=== PATIENT | female | born 1950 | race Caucasian/White ===

== ENCOUNTER 2018-07-20 05:52 | Day surgery (SDC) | payer MEDICARE, OTHER ==
[2018-07-20] MEDS ORDERED: Ketamine HCl 50 MG/ML IJ ONE (05:53)
[2018-07-20] MEDS ORDERED: DIPRIVAN 200 MG/20 ML IV ONE (05:53)
[2018-07-20] MEDS ORDERED: Lactated Ringers 1,000 ML IV SCH (06:30)
--- NOTE | 2018-07-20 08:53 | OP ---
SURGERY DATE/TIME: 07/20/2018 0800 PREOPERATIVE DIAGNOSIS: Screening exam. POSTOPERATIVE DIAGNOSIS: Moderate to severe sigmoid diverticulosis otherwise normal colon. PROCEDURE: Colonoscopy. SURGEON: Dr. Payan. ANESTHESIA: MAC. Medications given by anesthesia department. HISTORY: The patient is a 68 year-old white female presenting now for her first screening colonoscopy. The patient was appraised of the risks of the procedure including the risk of perforation, phlebitis, untoward reaction to medication, bleeding and missed lesions. The patient verbalized her understanding and desired to have the procedure performed. DESCRIPTION OF PROCEDURE: The patient was given the medications by the anesthesia department. She had continuous pulse oximetry, ECG monitoring, intermittent blood pressure monitoring and tidal CO2 monitoring during the examination. She was placed in the left lateral decubitus position. A digital rectal examination was performed and revealed normal anal sphincter tone and no masses. The flexible Olympus pediatric colonoscope was used to intubate the rectum. A view of the colon was developed sequentially to the cecum. Upon insertion and withdrawal, including a retroflex view in the rectum was noted moderate to severe sigmoid diverticulosis but no other mucosal lesions encountered. The scope was removed from the patient who tolerated the procedure well and was sent back to OP recovery in good condition. The prep was noted to be fair.
[2018-07-20 09:12] LABS: ANION GAP 11.7 MEQ/L (5-15); Calcium 9.4 mg/dL (8.4-10.2); Creatinine 1 0.99 mg/dL (0.52-1.04); Potassium 3.9 mmol/L (3.5-5.1); Risk Ratio 1.9
[2018-07-20 09:30] VITALS: BP 103/79; PULSE 69; O2SAT 98
== END 2018-07-20 09:35 | disposition home or self-care (01) ==
LOC: SDC 05:52
PROVIDERS: ATTEND Family Medicine
DX: Z12.11 Encounter for screening for malignant neoplasm of colon (principal); K57.30 Diverticulosis of large intestine without perforation or abscess without bleeding; J44.9 Chronic obstructive pulmonary disease, unspecified; Z79.899 Other long term (current) drug therapy
CPT/HCPCS: 36415; 80048; 80061; 83721; 94250; G0121; J2704

== ENCOUNTER 2021-12-31 09:52 | Observation (INO) | payer MEDICARE ==
[2021-12-31] MEDS ORDERED: DUONEB 0.5-3 MG/3 ml Neb IH ONE ×2 (10:08→10:15)
[2021-12-31 10:14] LABS: Absolute Neutrophil Ct (ANC) 11.98 (1.4-6.9); Basophil (Absolute #) 0.01 (0-0.4); Eosinophil % 0.4 % (0.00-5.0); Eosinophil (Absolute #) 0.06 (0-0.5); Hematocrit 46.2 % (35-47); Hemoglobin 15.2 gm/dl (12.0-16.0); Lymphocyte (Absolute #) 2.01 (1.0-4.6); Lymphocytes % 13.2 % (24.0-44.0); Mean Corpuscular Hemoglobin 30.3 pg (26-32); Mean Corpuscular Hgb Concent. 32.9 g/dl (32-36); Mean Platelet Volume 9.1 fl (7.5-11.0); Monocyte (Absolute #) 1.19 (0.0-1.3); Monocytes % 7.8 % (0.0-12.0); Neutrophil % 78.5 % (36.0-66.0); Platelet Count 457 K/mm3 (150-450); Red Blood Count 5.02 M/mm3 (4.1-5.4); Red Cell Distribution Width 13.7 % (11.5-14.0); White Blood Count 15.3 K/mm3 (4.0-10.5)
--- NOTE | 2021-12-31 10:15 | ERPHSYRPT ---
- History of Present Illness Source: patient Exam Limitations: no limitations Patient Subjective Stated Complaint: HERE FOR INCREASE SOB SINCE HAVING FLU A 2 WEEKS AGO, HAS COPD AND WEARS O2 AT 3LNC Triage Nursing Assessment: PT ALERT, RESP EASY, SKIN W/D/P, NO EDEMA NOTED, NO COUGH, Physician History: 71 yo WF who is 2L O2 NC dependent at all times present w increasing dyspnea upon exertion x 2 days after testing + for Flu A 2 wks ago. Pt still has a mild cough/coryza but denies fever/N/V/D/melena/hematochezia/chest pain/edema. She has recently increased her O2 to 3L NC. Orthopnea/PND are denied. Timing/Duration: day(s) (2 days/2.5 wks) Severity of Dyspnea-Max: moderate Severity of Dyspnea-Current: mild Possible Cause: frequent episodes Modifying Factors: Improves With: activity Associated Symptoms: cough, productive cough, No chest pain/discomfort, No edema, No fever, No insomnia, No loss of appetite, No lightheadedness, No wheezing, No weakness, No ankle swelling, No chills, No hemoptysis, No calf pain, No dizziness, No heaviness, No heart racing, No lightheadedness, No leg sw elling, No muscle spasms feet, No muscle spasms hands, No painful breathing, No sweating, No tightness, No tingling face, No tingling hands Allergies/Adverse Reactions: Penicillins Allergy (Verified 12/31/21 09:58) Hives Home Medications: Albuterol 2.5 mg/3 ml Neb [Proventil 2.5 mg/3 ml Neb] 1 inh.kit IH TID 06/10/15 [History] Albuterol 8 gm Mdi Hfa [Ventolin Hfa MDI] 1 puff IH Q6HPRN PRN 06/10/15 [History] Calcium Carbonate/Vitamin D3 [Calcarb 600 W-Vitamin D Tab] 1 tab PO DAILY 06/10/15 [History] Ipratropium [place] 1 inh.kit IH TID 06/10/15 [History] Ipratropium/Albuterol Sulfate [Combivent Respimat Inhal [place]] 1 inh IH BID 06/10/15 [History] Prednisone 5 mg [Deltasone 5 mg] 10 mg PO DAILY 06/10/15 [History] Famotidine [Pepcid] 40 mg PO DAILY 06/19/18 [History] Montelukast Sodium 10 mg [Singulair 10 MG] 10 mg PO DAILY 06/19/18 [History] Theophylline Anhydrous [Theophylline ER 24Hr] 300 mg PO DAILY 06/19/18 [History] Amlodipine Besylate [Norvasc] 2.5 mg PO DAILY 12/31/21 [History] Magnesium 250 mg PO DAILY 12/31/21 [History] PANTOPRAZOLE 40 mg Tablet [Protonix 40MG Tablet] 40 mg PO DAILY 12/31/21 [History] Hx Tetanus, Diphtheria Vaccination/Date Given: No Hx Influenza Vaccination/Date Given: Yes Hx Pneumococcal Vaccination/Date Given: No Immunizations Up to Date: Yes Travel Risk - International Travel Have you traveled outside of the country in past 3 weeks: No - Coronavirus Screening Are you exhibiting any of the following symptoms?: Yes Symptoms: Shortness of Breath Close contact with a COVID-19 positive Pt in past 14-21 Days: No - Vaccine Status Have you recieved a Covid-19 vaccination: Yes Furniture [employer]: Moderna - Vaccination Dates Date of 2cond Vaccination (if applicable): 2020 - Review of Systems Constitutional: No Symptoms, Fatigue, Malaise, Weakness Eyes: No Symptoms Ears, Nose, & Throat: No Symptoms Respiratory: Cough, Dyspnea, Dyspnea on Exertion (ANNE) Cardiac: No Symptoms Abdominal/Gastrointestinal: No Symptoms Genitourinary Symptoms: No Symptoms Musculoskeletal: No Symptoms Skin: No Symptoms Neurological: No Symptoms Psychological: No Symptoms Endocrine: No Symptoms Hematologic/Lymphatic: No Symptoms Immunological/Allergic: No Symptoms - Past Medical History Pertinent Past Medical History: Yes Neurological History: No Pertinent History ENT History: Cataracts Cardiac History: No Pertinent History Respiratory History: Asthma, COPD Endocrine Medical History: No Pertinent History Musculoskeletal History: Arthritis, Fractures GI Medical History: GERD History: No Pertinent History Psycho-Social History: No Pertinent History Female Reproductive Disorders: No Pertinent History Other Medical History: yan feet - Past Surgical History Past Surgical History: Yes Neuro Surgical History: No Pertinent History Cardiac: No Pertinent History Respiratory: No Pertinent History Gastrointestinal: No Pertinent History Genitourinary: No Pertinent History Musculoskeletal: Orthopedic Surgery Female Surgical History: Hysterectomy Other Surgical History: broken arm - r arm/elbow surgery, bilateral cataracts IOL implants,rt hand thumb nail removed - Social History Smoking Status: Former smoker Exposure to second hand smoke: No Drug Use: none Patient Lives Alone: No Significant Family History: no pertinent family hx - Nursing Vital Signs Nursing Vital Signs: Initial Vital Signs Temperature 97.8 F 12/31/21 09:53 Pulse Rate 100 H 12/31/21 09:53 Respiratory Rate 26 H 12/31/21 09:53 Blood Pressure 146/102 12/31/21 09:53 O2 Sat by Pulse Oximetry 95 12/31/21 09:53 Pain Scale Pain Intensity 0 Hypertensive - Physical Exam General Appearance: no apparent distress Eye Exam: PERRL/EOMI, eyes nml inspection Ears, Nose, Throat Exam: hearing grossly normal, normal ENT inspection, normal pharynx Neck Exam: normal inspection, non-tender, supple, full range of motion, No Brudzinski, No Kernig's, No meningismus, No carotid bruit, No JVD, No limited range of motion Respiratory Exam: airway intact, prolonged expirations, wheezing, No respiratory distress Cardiovascular/Chest Exam: regular rate/rhythm, normal peripheral pulses, No murmur Abdominal/Gastrointestinal Exam: soft, normal bowel sounds, No tenderness Peripheral Pulses Exam: carotid (R): 2+, carotid (L): 2+ Neurologic Exam: alert, oriented x 3, cooperative, buccaro II-XII nml as tested, normal mood/affect, nml cerebellar function, nml station & gait, sensation nml Skin Exam: normal color, warm, dry Lymphatic Exam: No adenopathy SpO2 Interpretation: normal SpO2: 95 O2 Delivery: Nasal Cannula (3L) - Course Nursing assessment & vital signs reviewed: Yes EKG Interpreted by Me: RATE (NSR/Rate 87/Normal QT-QTc/Lot of artifact/No acute ST segment changes/Occ PAc's) - Radiology Exams Chest X-ray Interpretation: Discussed w/ radiologist (Nothing acute) - CT Exams Chest CT Interpretation: Discussed w/radiologist (No PE or Pneumonia) Ordered Tests: Active Orders 24 hr Category Date Time Status EKG-ER Only STAT Care 12/31/21 09:58 Completed IV Insertion STAT Care 12/31/21 11:56 Completed Oxygen-ED Only Nasal Cannula 3 lpm Care 12/31/21 11:56 Completed Heart-Healthy Diet Diet 12/31/21 Dinner Active CHEST 1 VIEW (PORTABLE) Stat Exams 12/31/21 09:59 Completed CHEST WITH CONTRAST [CT] Stat Exams 12/31/21 12:26 Completed BLOOD CULTURE Stat Lab 12/31/21 14:43 Received CBC W DIFF AM.LAB Lab 01/01/22 04:00 Ordered CBC W DIFF Stat Lab 12/31/21 10:00 Completed CMP AM.LAB Lab 01/01/22 04:00 Ordered CMP Stat Lab 12/31/21 10:00 Completed D-DIMER QUANTITATIVE Stat Lab 12/31/21 10:00 Completed Lactic Acid AM.LAB Lab 01/01/22 04:00 Ordered Lactic Acid Stat Lab 12/31/21 10:32 Completed Manual Differential NC Stat Lab 12/31/21 10:00 Completed NT PRO BNP Stat Lab 12/31/21 10:00 Completed PROTIME WITH INR Stat Lab 12/31/21 10:00 Completed PTT Stat Lab 12/31/21 10:00 Completed TROPONIN Q3H Lab 12/31/21 10:00 Completed TROPONIN Q3H Lab 12/31/21 13:12 Completed TROPONIN Q3H Lab 12/31/21 16:15 Completed TROPONIN Q3H Lab 12/31/21 19:00 Ordered TROPONIN Q3H Lab 12/31/21 22:00 Ordered Transfer Order Routine Transfer 12/31/21 Completed Medication Summary Generic Name Dose Route Start Last Admin Trade Name Freq PRN Reason Stop Dose Admin Albuterol/Ipratropium 3 ml 12/31/21 14:29 Ipratropium/Albuterol Sulfate 3 Ml Ampul.[facility] 01/30/22 14:28 Q4HPRN PRN SHORTNESS OF BREATH/WHEEZING Albuterol/Ipratropium 3 ml 12/31/21 19:00 12/31/21 18:56 Ipratropium/Albuterol Sulfate 3 Ml Ampul.[facility] 01/30/22 18:59 3 ml QIDRT TERE Administration Amlodipine Besylate 2.5 mg 01/01/22 10:00 Amlodipine Besylate 5 Mg Tablet PO 01/31/22 09:59 DAILY TERE Methylprednisolone Sodium 0 mg 12/31/21 18:00 12/31/21 18:50 Succinate 125 mg/ Sterile IV 01/30/22 17:59 125 mg Water 2 ml Q6HT TERE Administration Enoxaparin Sodium 40 mg 12/31/21 16:00 12/31/21 17:29 Enoxaparin Sodium 40 Mg/0.4 Ml Syringe SQ 01/30/22 15:59 40 mg DAILY TERE Administration Famotidine 40 mg 12/31/21 17:00 Famotidine 20 Mg Tablet PO 01/30/22 16:59 DAILY TERE Sodium Chloride 1,000 mls @ 100 mls/hr 12/31/21 14:30 12/31/21 17:28 Sodium Chloride 0.9% 1000 Ml IV 01/30/22 14:29 100 mls/hr .Q10H TERE Administration Magnesium Oxide 400 mg 12/31/21 17:00 12/31/21 17:29 Magnesium Oxide 400 Mg Tablet PO 01/30/22 16:59 Not Given DAILY TERE Montelukast Sodium 10 mg 12/31/21 17:00 12/31/21 17:30 Montelukast Sodium 10 Mg Tablet PO 01/30/22 16:59 Not Given DAILY TERE Ondansetron HCl 4 mg 12/31/21 14:29 Ondansetron Hcl 4 Mg/2 Ml Vial IV 01/30/22 14:28 Q6H PRN PRN NAUSEA/VOMITING Pantoprazole Sodium 40 mg 12/31/21 16:00 12/31/21 17:29 Pantoprazole 40 Mg Vial IV 01/30/22 15:59 40 mg Q24H10 TERE Administration Patient Own Medication 1 each 12/31/21 19:00 12/31/21 18:59 Patient Own Med Misc 01/30/22 18:59 1 each BIDRT TERE Administration Theophylline 300 mg 01/01/22 10:00 Theophylline Anhydrous 400 Mg Tab.Er.24hr Tablet PO 01/31/22 09:59 DAILY TERE Discontinued Medications Generic Name Dose Route Start Last Admin Trade Name Freq PRN Reason Stop Dose Admin Albuterol/Ipratropium 3 ml 12/31/21 10:08 12/31/21 10:18 Ipratropium/Albuterol Sulfate 3 Ml Ampul.Neb 12/31/21 10:09 3 ml STAT ONE Administration Albuterol/Ipratropium Confirm 12/31/21 10:15 Ipratropium/Albuterol Sulfate 3 Ml Ampul.Neb Administered 12/31/21 10:16 Dose 3 ml IH .STK-MED ONE Methylprednisolone Sodium 0 mg 12/31/21 14:26 12/31/21 14:30 Succinate 125 mg/ Sterile IV 12/31/21 14:27 125 mg Water 2 ml STAT ONE Administration Sodium Chloride 1,000 mls @ 999 mls/hr 12/31/21 11:17 12/31/21 12:42 Sodium Chloride 0.9% 1000 Ml IV 12/31/21 12:17 Infused .Q1H1M STA Infusion Sodium Chloride Confirm 12/31/21 11:38 Sodium Chloride 0.9% 1000 Ml Administered 12/31/21 11:39 Dose 1,000 mls @ ud .ROUTE .STK-MED ONE Azithromycin 500 mg in 250 mls @ 250 mls/hr 12/31/21 14:33 12/31/21 17:43 Zithromax 500 Mg/ 250 Ml Nacl Premix IV 12/31/21 15:32 Not Given STAT STA Azithromycin 500 mg in 250 mls @ 250 mls/hr 12/31/21 14:34 12/31/21 17:28 Zithromax 500 Mg/ 250 Ml Nacl Premix IV 12/31/21 15:33 250 mls/hr STAT STA Administration Methylprednisolone Sodium Succinate Confirm 12/31/21 14:27 Methylprednis Sod Succ 125 Mg/2 Ml Vial Administered 12/31/21 14:28 Dose 125 mg .ROUTE .STK-MED ONE Flixotide 125 Mcg 1 each 12/31/21 22:00 Inhaler IH 01/30/22 21:59 BID TERE Sterile Water Confirm 12/31/21 14:27 Water For Injection,Sterile 10 Ml Vial Administered 12/31/21 14:28 Dose 10 ml IJ .STK-MED ONE Lab/Rad Data: Laboratory Result Diagrams 12/31/21 10:00 12/31/21 10:00 Laboratory Results 12/31/21 12/31/21 12/31/21 Range/Units 13:12 10:32 10:30 WBC (4.0-10.5) K/mm3 RBC (4.1-5.4) M/mm3 Hgb (12.0-16.0) gm/dl Hct (35-47) % MCV (78-100) fl MCH (26-32) pg MCHC (32-36) g/dl RDW (11.5-14.0) % Plt Count (150-450) K/mm3 MPV (7.5-11.0) fl Gran % (36.0-66.0) % Eos # (Auto) (0-0.5) Absolute Lymphs (auto) (1.0-4.6) Absolute Monos (auto) (0.0-1.3) Lymphocytes % (24.0-44.0) % Monocytes % (0.0-12.0) % Eosinophils % (0.00-5.0) % Basophils % (0.0-0.4) % Absolute Granulocytes (1.4-6.9) Segmented Neutrophils (36.0-66.0) % Lymphocytes (Manual) (24-44) % Monocytes (Manual) (0.0-12.0) % Basophils # (0-0.4) Platelet Estimate (NORMAL) RBC Morphology PT (9.4-12.5) SECONDS INR (0.8-3.0) APTT (25.1-36.5) SECONDS D-Dimer (215-500) ng/mL Sodium (137-145) mmol/L Potassium (3.5-5.1) mmol/L Chloride (98-107) mmol/L Carbon Dioxide (22-30) mmol/L Anion Gap (5-15) MEQ/L BUN (7-17) mg/dL Creatinine (0.52-1.04) mg/dL Estimated GFR ML/MIN Glucose (74-106) mg/dL Lactic Acid 1.8 (0.4-2.0) Calcium (8.4-10.2) mg/dL Total Bilirubin (0.2-1.3) mg/dL AST (14-36) U/L ALT (0-35) U/L Alkaline Phosphatase (38-126) U/L Troponin I < 0.012 (0.000-0.034) ng/mL NT-Pro-B Natriuret Pep (0-900) pg/mL Serum Total Protein (6.3-8.2) g/dL Albumin (3.5-5.0) g/dL Theophylline (10-20) ug/mL Influenza Type A Ag NEGATIVE (NEGATIVE) Influenza Type B Ag NEGATIVE (NEGATIVE) RSV (PCR) NEGATIVE (Negative) SARS-CoV-2 (PCR) NEGATIVE (NEGATIVE) 12/31/21 12/31/21 12/31/21 Range/Units 10:00 10:00 10:00 WBC (4.0-10.5) K/mm3 RBC (4.1-5.4) M/mm3 Hgb (12.0-16.0) gm/dl Hct (35-47) % MCV (78-100) fl MCH (26-32) pg MCHC (32-36) g/dl RDW (11.5-14.0) % Plt Count (150-450) K/mm3 MPV (7.5-11.0) fl Gran % (36.0-66.0) % Eos # (Auto) (0-0.5) Absolute Lymphs (auto) (1.0-4.6) Absolute Monos (auto) (0.0-1.3) Lymphocytes % (24.0-44.0) % Monocytes % (0.0-12.0) % Eosinophils % (0.00-5.0) % Basophils % (0.0-0.4) % Absolute Granulocytes (1.4-6.9) Segmented Neutrophils (36.0-66.0) % Lymphocytes (Manual) (24-44) % Monocytes (Manual) (0.0-12.0) % Basophils # (0-0.4) Platelet Estimate (NORMAL) RBC Morphology PT (9.4-12.5) SECONDS INR (0.8-3.0) APTT (25.1-36.5) SECONDS D-Dimer 535 H* (215-500) ng/mL Sodium (137-145) mmol/L Potassium (3.5-5.1) mmol/L Chloride (98-107) mmol/L Carbon Dioxide (22-30) mmol/L Anion Gap (5-15) MEQ/L BUN (7-17) mg/dL Creatinine (0.52-1.04) mg/dL Estimated GFR ML/MIN Glucose (74-106) mg/dL Lactic Acid (0.4-2.0) Calcium (8.4-10.2) mg/dL Total Bilirubin (0.2-1.3) mg/dL AST (14-36) U/L ALT (0-35) U/L Alkaline Phosphatase (38-126) U/L Troponin I < 0.012 (0.000-0.034) ng/mL NT-Pro-B Natriuret Pep (0-900) pg/mL Serum Total Protein (6.3-8.2) g/dL Albumin (3.5-5.0) g/dL Theophylline 5.6 L (10-20) ug/mL Influenza Type A Ag (NEGATIVE) Influenza Type B Ag (NEGATIVE) RSV (PCR) (Negative) SARS-CoV-2 (PCR) (NEGATIVE) 12/31/21 12/31/21 12/31/21 Range/Units 10:00 10:00 10:00 WBC 15.3 H (4.0-10.5) K/mm3 RBC 5.02 (4.1-5.4) M/mm3 Hgb 15.2 (12.0-16.0) gm/dl Hct 46.2 (35-47) % MCV 92.0 (78-100) fl MCH 30.3 (26-32) pg MCHC 32.9 (32-36) g/dl RDW 13.7 (11.5-14.0) % Plt Count 457 H (150-450) K/mm3 MPV 9.1 (7.5-11.0) fl Gran % 78.5 H (36.0-66.0) % Eos # (Auto) 0.06 (0-0.5) Absolute Lymphs (auto) 2.01 (1.0-4.6) Absolute Monos (auto) 1.19 (0.0-1.3) Lymphocytes % 13.2 L (24.0-44.0) % Monocytes % 7.8 (0.0-12.0) % Eosinophils % 0.4 (0.00-5.0) % Basophils % 0.1 (0.0-0.4) % Absolute Granulocytes 11.98 H (1.4-6.9) Segmented Neutrophils 79 H (36.0-66.0) % Lymphocytes (Manual) 9 L (24-44) % Monocytes (Manual) 12 (0.0-12.0) % Basophils # 0.01 (0-0.4) Platelet Estimate NORMAL (NORMAL) RBC Morphology NORMAL PT 12.2 (9.4-12.5) SECONDS INR 1.03 (0.8-3.0) APTT 27.3 (25.1-36.5) SECONDS D-Dimer (215-500) ng/mL Sodium 137 (137-145) mmol/L Potassium 4.4 (3.5-5.1) mmol/L Chloride 100 (98-107) mmol/L Carbon Dioxide 26 (22-30) mmol/L Anion Gap 15.5 H (5-15) MEQ/L BUN 33 H (7-17) mg/dL Creatinine 1.32 H (0.52-1.04) mg/dL Estimated GFR 42.2 ML/MIN Glucose 70 L (74-106) mg/dL Lactic Acid (0.4-2.0) Calcium 9.7 (8.4-10.2) mg/dL Total Bilirubin 0.90 (0.2-1.3) mg/dL AST 24 (14-36) U/L ALT 28 (0-35) U/L Alkaline Phosphatase 31 L (38-126) U/L Troponin I (0.000-0.034) ng/mL NT-Pro-B Natriuret Pep 106 (0-900) pg/mL Serum Total Protein 7.4 (6.3-8.2) g/dL Albumin 4.6 (3.5-5.0) g/dL Theophylline (10-20) ug/mL Influenza Type A Ag (NEGATIVE) Influenza Type B Ag (NEGATIVE) RSV (PCR) (Negative) SARS-CoV-2 (PCR) (NEGATIVE) - Progress Progress: improved Progress Note: 12/31/21 14:37 Duoneb x1 w improvement 125mg IV Solumedrol 500mg IV Zithromax 1L NS bolus Admit per Dr. Beltran Admitting orders written Blood Culture(s) Obtained: Yes Antibiotics given: Yes Discussed with : Landon Counseled pt/family regarding: lab results, diagnosis, need for follow-up, rad results - Departure Departure Disposition: Observation Clinical Impression: COPD exacerbation Condition: Stable Critical Care Time: No
[2021-12-31 10:21] LABS: INR 1.03 (0.8-3.0); PROTIME 12.2 SECONDS (9.4-12.5)
[2021-12-31 10:23] LABS: PTT 27.3 SECONDS (25.1-36.5)
--- NOTE | 2021-12-31 10:27 | XRAY ---
Indication: Dyspnea. Comparison: December 20, 2021. Portable apical lordotic chest unchanged again hyperinflated and clear. Heart not enlarged again with incidental hilar calcified nodes. No new/acute findings.
[2021-12-31 10:34] LABS: ALBUMIN 4.6 g/dL (3.5-5.0); ANION GAP 15.5 MEQ/L (5-15); BILIRUBIN,TOTAL 0.9 mg/dL (0.2-1.3); Calcium 9.7 mg/dL (8.4-10.2); Creatinine 1 1.32 mg/dL (0.52-1.04); EST GLOMERULAR FILTRATION RATE 42.2 ML/MIN; Potassium 4.4 mmol/L (3.5-5.1); Total Protein 7.4 g/dL (6.3-8.2)
[2021-12-31 10:53] LABS: Lymphocytes 9 % (24-44); Monocyte 12 % (0.0-12.0); Total Cells Counted 100
[2021-12-31 10:54] LABS: Neutrophils 79 % (36.0-66.0); Platelet Estimate NORMAL (NORMAL)
[2021-12-31] MEDS ORDERED: Sodium Chloride 0.9% 1000 ML 1,000 ML IV STA (11:17)
[2021-12-31 11:34] LABS: INFLUENZA A NEGATIVE (NEGATIVE); INFLUENZA B NEGATIVE (NEGATIVE); RESPIRATORY SYNCTIAL VIRUS NEGATIVE (Negative); SARS-CoV-2 Xpert Express NEGATIVE (NEGATIVE)
[2021-12-31] MEDS ORDERED: Sodium Chloride 0.9% 1000 ML 1,000 ML ONE (11:38)
--- NOTE | 2021-12-31 13:53 | XRAY ---
Indication: Short of breath. Pneumonia. Multiple contiguous axial images obtained through the chest using 80 cc Isovue 370 contrast and PE protocol. Comparison: June 26, 2020. Good opacification of the pulmonary arteries to include the lobar and segmental branches. No pulmonary embolus. Heart not enlarged. Aorta remains mildly arteriosclerotic without aneurysm/dissection. No pathologic mediastinal/hilar lymphadenopathy. Lungs again demonstrates diffuse pulmonary emphysema with minimal scattered fibrosis/scarring. No suspicious pulmonary mass, infiltrate, or effusion. Bony thorax intact again with mild degenerative changes throughout the spine. Stable benign right breast mass. Limited upper abdomen including adrenal glands unremarkable. Impression: 1. Negative pulmonary embolus. No new/acute cardiopulmonary abnormalities. 2. Again incidental pulmonary emphysema, scattered fibrosis/scarring, and benign right breast mass.
[2021-12-31] MEDS ORDERED: solu-MEDROL 125 MG, Sterile H2O 10 ml 2 ML IV ONE ×2 (14:26)
[2021-12-31] MEDS ORDERED: Sterile H2O 10 ml IJ ONE (14:27)
[2021-12-31] MEDS ORDERED: solu-MEDROL ONE (14:27)
[2021-12-31] MEDS ORDERED: DUONEB 0.5-3 MG/3 ml Neb IH PRN (14:29)
[2021-12-31] MEDS ORDERED: Zofran 4 MG/2 ML VIAL IV PRN (14:29)
[2021-12-31] MEDS ORDERED: Zithromax 500 MG/ 250 ML NaCl Premix 500 MG/250 ML IVPB IV STA ×2 (14:33→14:34)
[2021-12-31] MEDS ORDERED: Singulair 10 MG PO SCH (17:00)
[2021-12-31] MEDS: Sodium Chloride 0.9% 1000 ML 1,000 ML IV SCH (17:28)
[2021-12-31] MEDS: MAG-OX 400 PO SCH ×2 (17:29→20:06)
[2021-12-31] MEDS: PROTONIX 40 MG IV IV SCH (17:29)
[2021-12-31] MEDS: ENOXAPARIN SODIUM SQ SCH (17:29)
[2021-12-31] MEDS: solu-MEDROL 125 MG, Sterile H2O 10 ml 2 ML IV SCH ×4 (18:50→23:49)
[2021-12-31] MEDS: DUONEB 0.5-3 MG/3 ml Neb IH SCH (18:56)
[2021-12-31] MEDS: PATIENT OWN MEDICATION IH SCH (18:59)
[2021-12-31] MEDS: Singulair 10 MG PO SCH (20:06)
[2021-12-31] MEDS: Pepcid 20 MG PO SCH (20:06)
[2021-12-31] MEDS ORDERED: PATIENT OWN MEDICATION IH SCH (22:00)
[2021-12-31] MEDS: xanAX 0.5 MG PO PRN (23:22)
[2022-01-01] MEDS: Sodium Chloride 0.9% 1000 ML 1,000 ML IV SCH ×3 (04:14→23:11)
[2022-01-01] MEDS: solu-MEDROL 125 MG, Sterile H2O 10 ml 2 ML IV SCH ×8 (05:35→23:10)
[2022-01-01 06:00] LABS: Hemoglobin 12.6 gm/dl (12.0-16.0); Mean Cell Volume 93.4 fl (78-100); Mean Corpuscular Hgb Concent. 33.2 g/dl (32-36); Platelet Count 271 K/mm3 (150-450); Red Blood Count 4.07 M/mm3 (4.1-5.4); Red Cell Distribution Width 13.1 % (11.5-14.0); White Blood Count 8.3 K/mm3 (4.0-10.5)
[2022-01-01 06:17] LABS: ALBUMIN 3.5 g/dL (3.5-5.0); ALKALINE PHOSPHATASE 22 U/L (38-126); ANION GAP 9.8 MEQ/L (5-15); BLOOD UREA NITROGEN 23 mg/dL (7-17); CHLORIDE 106 mmol/L (98-107); Calcium 8.1 mg/dL (8.4-10.2); Carbon Dioxide 26 mmol/L (22-30); Creatinine 1 0.86 mg/dL (0.52-1.04); EST GLOMERULAR FILTRATION RATE > 60.0 ML/MIN; Glucose 121 mg/dL (74-106); Potassium 4.4 mmol/L (3.5-5.1); SGOT/AST 18 U/L (14-36); SGPT/ALT 23 U/L (0-35); SODIUM 137 mmol/L (137-145); Total Protein 5.7 g/dL (6.3-8.2)
[2022-01-01] MEDS: DUONEB 0.5-3 MG/3 ml Neb IH SCH ×4 (07:13→20:27)
[2022-01-01] MEDS: PATIENT OWN MEDICATION IH SCH ×2 (07:14→20:27)
[2022-01-01 08:58] LABS: BAND 2 % (0.0-2.0); Lymphocytes 6 % (24-44); Monocyte 2 % (0.0-12.0); Neutrophils 90 % (36.0-66.0); Platelet Estimate NORMAL (NORMAL); Total Cells Counted 100
[2022-01-01] MEDS ORDERED: NON-FORMULARY ITEM (Magnesium [Magnesium] 200 MG Tablet) PO SCH (10:00)
[2022-01-01] MEDS ORDERED: NON-FORMULARY ITEM (Famotidine [Pepcid] 40 MG Tablet) PO SCH (10:00)
[2022-01-01] MEDS ORDERED: ENOXAPARIN SODIUM SQ SCH (10:00)
[2022-01-01] MEDS ORDERED: THEOPHYLLINE ER 24HR PO SCH ×2 (10:00→10:07)
[2022-01-01] MEDS ORDERED: NON-FORMULARY ITEM (Amlodipine Besylate [Norvasc] 2.5 MG Tablet) PO SCH (10:00)
[2022-01-01] MEDS: ENOXAPARIN SODIUM SQ SCH (10:54)
[2022-01-01] MEDS: PROTONIX 40 MG IV IV SCH (10:55)
[2022-01-01] MEDS: NORVASC 5 MG PO SCH (10:55)
[2022-01-01] MEDS: Pepcid 20 MG PO SCH (10:55)
[2022-01-01] MEDS: THEOPHYLLINE ER 24HR PO SCH ×2 (11:52→21:05)
[2022-01-01] MEDS: ROCEPHIN 1 Gm-D5w 50 ml Bag** 1 G/50 ML IVPB IV SCH (11:52)
[2022-01-01] MEDS: PULMICORT 0.5 MG/2 ML RESPULES IH SCH ×2 (15:08→20:27)
[2022-01-01] MEDS: Singulair 10 MG PO SCH (21:05)
[2022-01-01] MEDS: xanAX 0.5 MG PO PRN (23:08)
[2022-01-02] MEDS: solu-MEDROL 125 MG, Sterile H2O 10 ml 2 ML IV SCH ×2 (05:15)
[2022-01-02 05:52] LABS: Hematocrit 37.6 % (35-47); Hemoglobin 12.2 gm/dl (12.0-16.0); Mean Cell Volume 93.8 fl (78-100); Mean Corpuscular Hemoglobin 30.4 pg (26-32); Mean Corpuscular Hgb Concent. 32.4 g/dl (32-36); Mean Platelet Volume 8.9 fl (7.5-11.0); Platelet Count 343 K/mm3 (150-450); Red Blood Count 4.01 M/mm3 (4.1-5.4); Red Cell Distribution Width 13.1 % (11.5-14.0)
[2022-01-02 06:19] LABS: ANION GAP 10.1 MEQ/L (5-15); BLOOD UREA NITROGEN 18 mg/dL (7-17); CHLORIDE 110 mmol/L (98-107); Calcium 7.9 mg/dL (8.4-10.2); Carbon Dioxide 25 mmol/L (22-30); Creatinine 1 0.77 mg/dL (0.52-1.04); EST GLOMERULAR FILTRATION RATE > 60.0 ML/MIN; Glucose 120 mg/dL (74-106); SODIUM 141 mmol/L (137-145)
[2022-01-02] MEDS: PULMICORT 0.5 MG/2 ML RESPULES IH SCH (07:12)
[2022-01-02] MEDS: DUONEB 0.5-3 MG/3 ml Neb IH SCH ×4 (07:13→19:07)
[2022-01-02] MEDS: PATIENT OWN MEDICATION IH SCH (07:19)
[2022-01-02] MEDS: PROTONIX 40 MG IV IV SCH (09:35)
[2022-01-02] MEDS: Pepcid 20 MG PO SCH (09:36)
[2022-01-02] MEDS: MAG-OX 400 PO SCH (09:36)
[2022-01-02] MEDS: ROCEPHIN 1 Gm-D5w 50 ml Bag** 1 G/50 ML IVPB IV SCH (09:36)
[2022-01-02] MEDS: NORVASC 5 MG PO SCH (09:36)
[2022-01-02] MEDS: ENOXAPARIN SODIUM SQ SCH (09:36)
[2022-01-02] MEDS: THEOPHYLLINE ER 24HR PO SCH ×2 (09:37→21:18)
[2022-01-02] MEDS ORDERED: PROVENTIL 2.5 MG/3 ML NEB IH PRN (11:13)
[2022-01-02] MEDS: Sodium Chloride 0.9% 1000 ML 1,000 ML IV SCH ×2 (11:51→21:18)
[2022-01-02] MEDS: Zithromax 250 MG TABLET PO SCH (11:53)
[2022-01-02] MEDS: solu-MEDROL 60 MG, Sterile H2O 10 ml 2 ML IV SCH ×6 (11:54→23:15)
--- NOTE | 2022-01-02 12:47 | XRAY ---
Indication: COPD exacerbation. Comparison: December 31, 2021. Portable apical lordotic chest unchanged again hyperinflated and clear. Heart is not enlarged. No new/acute findings.
[2022-01-02] MEDS ORDERED: Advair Hfa 115/21 Mcg Inhaler IH SCH (19:00)
[2022-01-02] MEDS: Advair Hfa 115/21 Common canister IH SCH (19:07)
[2022-01-02] MEDS: Singulair 10 MG PO SCH (21:18)
[2022-01-02] MEDS: xanAX 0.5 MG PO PRN (23:15)
[2022-01-03 05:04] LABS: Hematocrit 35.7 % (35-47); Hemoglobin 11.6 gm/dl (12.0-16.0); Mean Cell Volume 93.7 fl (78-100); Mean Corpuscular Hemoglobin 30.4 pg (26-32); Mean Corpuscular Hgb Concent. 32.5 g/dl (32-36); Platelet Count 286 K/mm3 (150-450); Red Blood Count 3.81 M/mm3 (4.1-5.4); Red Cell Distribution Width 13.2 % (11.5-14.0); White Blood Count 12.7 K/mm3 (4.0-10.5)
[2022-01-03] MEDS: solu-MEDROL 60 MG, Sterile H2O 10 ml 2 ML IV SCH ×2 (05:11)
[2022-01-03] MEDS: Sodium Chloride 0.9% 1000 ML 1,000 ML IV SCH (05:15)
[2022-01-03 05:31] LABS: BLOOD UREA NITROGEN 14 mg/dL (7-17); CHLORIDE 107 mmol/L (98-107); Calcium 7.5 mg/dL (8.4-10.2); Carbon Dioxide 25 mmol/L (22-30); Creatinine 1 0.64 mg/dL (0.52-1.04); EST GLOMERULAR FILTRATION RATE > 60.0 ML/MIN; Glucose 119 mg/dL (74-106); Potassium 3.8 mmol/L (3.5-5.1); SODIUM 139 mmol/L (137-145)
[2022-01-03] MEDS: DUONEB 0.5-3 MG/3 ml Neb IH SCH ×2 (07:49→11:28)
[2022-01-03] MEDS: Advair Hfa 115/21 Common canister IH SCH (07:53)
[2022-01-03] MEDS ORDERED: DELTASONE 20 MG PO ONE (10:00)
--- NOTE | 2022-01-03 10:10 | DS ---
DISCHARGE DIAGNOSIS: ACUTE EXACERBATION OF CHRONIC OBSTRUCTIVE PULMONARY DISEASE. HISTORY: The patient is a 71-year-old white female who presented to the emergency room for evaluation. We have been treating her with high dose prednisone as an outpatient but she has continued to have difficulties. We felt she would be better off to be inpatient for IV Solu-Medrol and antibiotics. HOSPITAL COURSE: The patient was admitted to the medicine araujo. She was found to have saturations that were good but was very dyspneic especially with any movement. She was admitted and placed on IV steroid medications. She was showing some improvement since that time. She looks good this morning and will be eating breakfast. She has been treated with ceftriaxone, azithromycin during her stay and theophylline had been increased to 400 mg every 8 hours. We will check her theophylline level this morning prior to discharge home and place her on theophylline at 300 mg twice a day. She normally takes 300 mg once a day but her theophylline level on admission was only 5.7. The patient's last set of blood work showed her BUN to be 14, creatinine 0.64, glucose 119. She is currently on Solu-Medrol at 60 every 8 hours. The patient's electrolytes were normal. Her white count was slightly elevated to 12.7, hemoglobin 11.6 and PLT count of 286,000. The patient will be discharged home today. She will have an appointment to see Dr. Mariscal in approximately a week and I will see her on Monday. She will be on prednisone 60 mg daily until that time as well as theophylline and Advair which is new for her. She normally just takes Flovent but now she is on 250/50 of Advair twice a day. She has home oxygen. She is requesting to have a walker due to heaviness of the oxygen and she is afraid she might fall. Will have physical therapy evaluation to see how she is doing on ambulation and arrange for a walker at home. The patient is instructed see me in the office in one week or to call me if she has problems otherwise.
[2022-01-03] MEDS: ROCEPHIN 1 Gm-D5w 50 ml Bag** 1 G/50 ML IVPB IV SCH (10:27)
[2022-01-03] MEDS: Pepcid 20 MG PO SCH (10:27)
[2022-01-03] MEDS: MAG-OX 400 PO SCH (10:27)
[2022-01-03] MEDS: Zithromax 250 MG TABLET PO SCH (10:27)
[2022-01-03] MEDS: NORVASC 5 MG PO SCH (10:27)
[2022-01-03] MEDS: ENOXAPARIN SODIUM SQ SCH (10:27)
[2022-01-03] MEDS: PROTONIX 40 MG IV IV SCH (10:27)
[2022-01-03] MEDS: THEOPHYLLINE ER 24HR PO SCH (10:28)
[2022-01-03 13:48] VITALS: BP 137/78; PULSE 101; O2SAT 99
[2022-01-03] MEDS ORDERED: THEOPHYLLINE ER 24HR PO SCH (22:00)
== END 2022-01-03 13:35 | disposition home or self-care (01) ==
LOC: ED 09:52 → MED SURG 15:20
PROVIDERS: ADMIT Family Medicine; ATTEND Family Medicine
DX: J44.1 Chronic obstructive pulmonary disease with (acute) exacerbation (principal); Z99.81 Dependence on supplemental oxygen; Z79.899 Other long term (current) drug therapy; Z20.828 Contact with and (suspected) exposure to other viral communicable diseases
CPT/HCPCS: 0241U; 36000; 36415; 71045; 71260; 80048; 80053; 80198; 83605; 83880; 84484; 85025; 85027; 85379; 85610; 85730; 87040; 93005; 94640; 94760; 96374; 97161; 99285; G0378; J0456; J0696; J1650; J2930; A9270-GY